=== PATIENT | female | born 1980 | race Caucasian/White ===

== ENCOUNTER 2018-07-03 02:59 | Emergency (ER) | payer SELFPAY ==
[~2018-07-03] VITALS: Ht 165.1 cm; Wt 90.7 kg
[2018-07-03 03:04] VITALS: Ht 165.1 cm; Wt 90.7 kg
[2018-07-03 05:07] VITALS: BP 108/72
== END 2018-07-03 05:07 | disposition home or self-care (01) ==
LOC: ED 02:59
DX: N39.0 Urinary tract infection, site not specified (principal)
CPT/HCPCS: J1885

== ENCOUNTER 2018-10-01 19:48 | Emergency (ER) | payer MEDICAID ==
[~2018-10-01] VITALS: Ht 167.6 cm; Wt 89.8 kg
[2018-10-01 20:04] VITALS: Ht 167.6 cm; Wt 89.8 kg
[2018-10-01 21:13] LABS: BASOPHIL % 0.8 % (0-2); PLATELET COUNT 390 x10^3mcL (130-400)
[2018-10-01 21:15] LABS: RED CELL DISTRIBUTION WIDTH 14.7 % (11.5-14.5)
[2018-10-01 21:27] LABS: CARBON DIOXIDE 27.6 mmol/L (21-32); CHLORIDE SERUM 103 mmol/L (98-107); CREATININE SERUM 0.6 mg/dL (0.6-1.0); GFR1 > 60 mL/min; GLUCOSE SERUM 100 mg/dL (74-106); POTASSIUM SERUM 3.6 mmol/L (3.5-5.1); SODIUM SERUM 136 mmol/L (136-145)
[2018-10-01 21:32] LABS: ALBUMIN 3.4 g/dL (3.4-5.0); ALKALINE PHOSPHATASE 91 U/L (46-116); ALT/SGPT 70 U/L (14-59); AST/SGOT 83 U/L (15-37); BILIRUBIN TOTAL 0.1 mg/dL (0.20-1.00); LIPASE 149 IU/L (73-393); TOTAL PROTEIN, SERUM 7.9 g/dL (6.4-8.2)
[2018-10-01 22:30] VITALS: BP 127/67
== END 2018-10-01 22:30 | disposition home or self-care (01) ==
LOC: ED 19:48
PROVIDERS: Emergency Medicine
DX: K80.50 Calculus of bile duct without cholangitis or cholecystitis without obstruction (principal)
CPT/HCPCS: J2405; J7030; Q0092

== ENCOUNTER 2018-12-26 17:57 | Inpatient (IN) | payer MEDICAID ==
[~2018-12-26] VITALS: Ht 157.5 cm; Wt 93.4 kg
[2018-12-26 18:28] VITALS: Ht 157.5 cm; Wt 93.4 kg
--- NOTE | 2018-12-26 20:15 | NUR ---
PT CAME IN COMPLAINING OF PAIN TO THE ABDOMEN THAT MOVES TO THE BACK. PT HAS HAD NO HISTORY OF SURGERIES IN THE PAST. SHE HAS HAD STONES BEFORE THOUGH. PT HAS NOT HAD MUCH TO EAT TODAY, SHE DID SAY SHE HAD SOME CHILI. PT STATES THAT PAIN IS MORE IN THE CENTER OF HER ABD. SHE HAS HAD THE PAIN FOR ABOUT ONE DAY NOW.
--- NOTE | 2018-12-26 20:30 | NUR ---
LAB AT BEDSIDE FOR BLOOD DRAW.
[2018-12-26 20:43] LABS: BASOPHIL % 0.7 % (0-2); PLATELET COUNT 370 x10^3mcL (130-400); RED CELL DISTRIBUTION WIDTH 14.2 % (11.5-14.5)
[2018-12-26 20:53] LABS: CALCIUM 8.9 mg/dL (8.5-10.1); CARBON DIOXIDE 26.3 mmol/L (21-32); CHLORIDE SERUM 103 mmol/L (98-107); CREATININE SERUM 0.7 mg/dL (0.6-1.0); GFR1 > 60 mL/min; GLUCOSE SERUM 116 mg/dL (74-106); POTASSIUM SERUM 3.6 mmol/L (3.5-5.1); SODIUM SERUM 141 mmol/L (136-145)
[2018-12-26 20:57] LABS: ALBUMIN 3.6 g/dL (3.4-5.0); ALKALINE PHOSPHATASE 110 U/L (46-116); ALT/SGPT 137 U/L (14-59); AST/SGOT 187 U/L (15-37); BILIRUBIN TOTAL 0.1 mg/dL (0.20-1.00); LIPASE 160 IU/L (73-393); TOTAL PROTEIN, SERUM 8.2 g/dL (6.4-8.2)
--- NOTE | 2018-12-26 22:34 | NUR ---
PT NO LONGER COMPLAINING OF PAIN, 0/10 AFTER FENTANYL.
--- NOTE | 2018-12-27 00:05 | NUR ---
PT MEDICATED PER MD ORDERS. SEE EMAR FOR DETAILS.
--- NOTE | 2018-12-27 00:27 | NUR ---
REPORT GIVEN TO ZEN CROUCH. ALL QUESTIONS AND CONCERNS ANSWERED. PT MADE AWARE.
--- NOTE | 2018-12-27 00:39 | NUR ---
PT OFF FLOOR TO MED SURG.
--- NOTE | 2018-12-27 00:45 | NUR ---
RECIEVED PATIENT FROM ED A/O X4. SERBIAN SPEAKING. AMBULATORY. DENIES SOB. DENIES PAIN. PATIENT AND FAMILY ORIENTED TO RROM AND USE OF CALL LIGHT. BED LOCKED AND IN LOWEST POSITION. CALL LIGHT AND BEDSIDE TABLE WITHIN REACH. RUBIA ARMAS TO ADMIT PATIENT. WILL IMPLEMENT MD ORDERS AND CONTINUE TO MONITOR PATIENT.
[2018-12-27 00:57] VITALS: BP 121/71
--- NOTE | 2018-12-27 01:07 | NUR ---
RECEVIED PT FROM ER. PT ADMIT FOR ABD PAIN, PT IS A/O X4, VERBAL RESPONSIVE, ABLE TO TELL WHAT SHE NEEDS. LUNG SOUND CLEAR BILATERAL, NO COUGH, NO SOB. PT DENY ANY CHEST PAIN, BOWEL SOUND PRESENT ALL 4 QUADRANTS, NO DISTENTION, NO TENDER. DENY ANY ABD PAIN OR N/V AT THIS TIME, PEDAL PULSE PRESENT BOTH FEET, NO EDEMA, IV AT RIGHT WRIST, NO LEAKING, NO INFITLRATION. ALL ADLS ASSIST, ALL NEED MET, CALL LIGHT IN REACH, WILL CONTINUE TO MONITOR.
[2018-12-27 01:48] LABS: CHOLESTEROL/HDL RATIO 4.5; MAGNESIUM 2.2 mg/dL (1.8-2.4); PHOSPHOROUS 3.8 mg/dL (2.5-4.9)
[2018-12-27 01:50] LABS: T3 TOTAL 1.02 ng/mL
[2018-12-27 01:53] LABS: FREE T4 0.91 ng/dL (0.76-1.46); FREE THYROXINE INDEX 2.3 ug/dL (1.4-4.5); T4(THYROXINE) 6.6 ug/dL (4.7-13.3)
[2018-12-27 06:02] VITALS: BP 103/64
[2018-12-27 06:39] LABS: BASOPHIL % 0.7 % (0-2); PLATELET COUNT 350 x10^3mcL (130-400); RED CELL DISTRIBUTION WIDTH 14.1 % (11.5-14.5)
--- NOTE | 2018-12-27 06:39 | NUR ---
UA STILL NEEDS TO BE OBTAINED, PATIENT HAS NOT VOIDED SINCE ADMISSION TO FLOOR. NO SIGNIFICANT EVENTS THIS SHIFT. WILL ENDORSE CARE TO MORNING NURSE.
[2018-12-27 06:53] LABS: CALCIUM 8.1 mg/dL (8.5-10.1); CARBON DIOXIDE 25.8 mmol/L (21-32); CHLORIDE SERUM 108 mmol/L (98-107); CREATININE SERUM 0.6 mg/dL (0.6-1.0); GFR1 > 60 mL/min; GLUCOSE SERUM 104 mg/dL (74-106); MAGNESIUM 2.2 mg/dL (1.8-2.4); PHOSPHOROUS 3.4 mg/dL (2.5-4.9); POTASSIUM SERUM 4.3 mmol/L (3.5-5.1); SODIUM SERUM 141 mmol/L (136-145)
--- NOTE | 2018-12-27 07:10 | NUR ---
RECEIVED PT FROM [facility]. PT RESTING IN BED WITH BOTH EYES CLOSED. NO S/S OF ACUTE DISTRESS. NO S/S OF PAIN. MED-SURG. IV WNL TO RW, NO REDNESS, NO SWELLING, NO INFILTRATION. PATENT. BED IN LOW POSITION. CALL LIGHT WITHIN REACH. WILL CONT. TO MONITOR.
--- NOTE | 2018-12-27 08:55 | NUR ---
PT TAKEN FOR PROCEDURE. AA/OX4. NO S/S OF ACUTE DISTRESS. DR. BALL DISCUSSES RISK/BENEFITS WITH PT AND , VERBALIZED UNDERSTANDING. NO FURTHER QUESTION. CONSENT OBTAINED. CHECKLIST COMPLETE. WINSTON WIPES COMPLETED. NO SOB ON ROOM AIR. NO CHEST PAIN. UA/UDS SAMPLE OBTAINED. WILL SEND TO LAB. IV WNL TO RW, 20 GAUGE. PT AMBULATORY WITH FULL ROM, GAIT STEADY. COMPLAINT OF MILD DIZZINESS. ACCOMPANIED BY , TAKEN BY [place]ON TO OR. VS STABLE.
[2018-12-27 09:26] LABS: microscopic required? NO
[2018-12-27 09:34] VITALS: BP 129/93
[2018-12-27 10:11] LABS: UA SPECIFIC GRAVITY 1.015 (1.005-1.035); urine erythrocyte NEGATIVE (NEGATIVE)
[2018-12-27 11:15] VITALS: BP 113/56
--- NOTE | 2018-12-27 11:15 | NUR ---
PT BACK FROM PROCEDURE. AA/OX4. NO S/S OF ACUTE DISTRESS. REPORTS PAIN TO ABD. 5/10, CONTINUOUS. WILL GIVE PAIN MED. VS STABLE. RR EVEN/UNLABORED. COMPLAINT OF MILD DRY COUGH. S/P LAB PUJA, ABD. INCISIONS X4 TO ABD, COVERED BY BANDAIDS X3 AND DRESSING X1. CDI. NO N/V. NO CHEST PAIN. IV WNL, PATENT. NO REDNESS, NO SWELLING, NO INFILTRATION. PT CALM/COOPERATIVE. AT BEDSIDE. BED IN LOW POSITION. CALL LIGHT WITHIN REACH. WILL CONT. TO MONITOR.
--- NOTE | 2018-12-27 14:00 | NUR ---
PT AMBULATORY TO RESTROOM, AA/OX4. GAIT STEADY. MILD PAIN WITH AMBULATION, REPORTS TOLERABLE AT THIS TIME. RATES 2/1O. DECLINED TO PAIN MED. VOID X1. NO SOB ON ROOM AIR. NO CHEST PAIN. PT MENSES NOTED. BED IN LOW POSITION. CALL LIGHT WITHIN REACH. DRESSINGS TO ABD. CDI. NO N/V. WILL CONTINUE TO MONITOR.
[2018-12-27 15:21] LABS: AMPHETAMINE QUAL UR NONE DETECTED (See below)
--- NOTE | 2018-12-27 16:11 | NUR ---
PT COMPLAINT OF PAIN TO ABD, DESCRIBES ACHING, CONTINUOUS, RATES 4/10, GIVEN PAIN MED, SEE MAR. NO N/V. NO S/S OF ACUTE DISTRESS. NO SOB ON ROOM AIR. NO CHEST PAIN. IV WNL, IV FLUIDS FLOWING. PT CALM/COOPERATIVE. FAMILY AT BEDSIDE. BED IN LOW POSITION. CALL LIGHT WITHIN REACH. WILL CONT. TO MONITOR.
[2018-12-27 16:43] VITALS: BP 121/66
--- NOTE | 2018-12-27 18:40 | NUR ---
PT SITTING IN BED WITH HOB ELEVATED. NO S/S OF ACUTE DISTRESS. NO COMPLAINT OF PAIN. NO SOB ON ROOM AIR. NO CHEST PAIN. NO ABD. PAIN. TOLERATED DINNER WELL. NO N/V. PASSING GAS. URINE YELLOW/CLEAR. VOID X2 AFTER PROCEDURE. PT CALM/COOPERATIVE. IV WNL, IV FLUIDS FLOWING. BED IN LOW POSITION. CALL LIGHT WITHIN REACH. WILL ENDORSE TO ONCOMING SHIFT.
--- NOTE | 2018-12-27 19:53 | NUR ---
RECEIVED PT IN BED, ALERT AND ORIENTED. ABLE TO VERBALIZE NEEDS.DENIES HEADACHE/DIZZINESS. RESP. EVEN AND UNLABORED. ON ROOM AIR, LUNGS SOUNDS CLEAR BILAT. NO ACUTE DISTRESS NOTED. AFEBRILE AND VITAL SIGNS STABLE. NO TELE, DENIES CHEST PAIN OR ANY DISCOMFORT AT THIS TIME. ABD. DRESSING WITH BANDAIDS/DRESSING, DRY AND INTACT. ABD. SOFT, NON DISTENDED, PASSING GAS, VOIDING FREELY, BUT NO BM NOTED AT THIS TIME. IVF, NS AT 40ML/HR, INTACT AND INFUSING VIA RT WRIST. SITE CLEAR. AMBULATING TO BATHROOM. CALL LIGHT WITHIN REACH. WILL CONTINUE TO MONITOR.
[2018-12-27 20:56] VITALS: BP 109/69
--- NOTE | 2018-12-28 00:43 | NUR ---
NO COMPLAINTS NOTED AT THIS TIME. EYES CLOSED. APPEARS ASLEEP. EASILY AROUSABLE. RESP. EVEN AND UNLABORED. NO ACUTE DISTRESS NOTED. IVF INTACT AND INFUSING WELL, SITE CLEAR. CALL LIGHT WITHIN REACH. WILL CONTINUE TO MONITOR.
--- NOTE | 2018-12-28 01:55 | NUR ---
AWAKE, COMPLAINING OF ABD. INCISION SITE PAIN, 4/10, MEDICATED WITH NORCO PO ORDERED. WILL CONTINUE TO MONITOR.
--- NOTE | 2018-12-28 02:58 | NUR ---
PT ASLEEP, APPEARS COMFORTABLE. SPOUSE AT THE BEDSIDE. CALL LIGHT WITHIN REACH. WILL CONTINUE TO MONITOR.
[2018-12-28 05:19] VITALS: BP 107/64
--- NOTE | 2018-12-28 06:13 | NUR ---
AFEBRILE AND VITAL SIGNS STABLE. RESP. EVEN AND UNLABORED. NO ACUTE DISTRESS NOTED. ABD. INCISION SITES WITH BANDAIDS/DRESSING, DRY AND INTACT. IVF INTACT AND INFUSING WELL, SITE CLEAR. UP TO THE BATHROOM, VOIDING FREELY. KEPT COMFORTABLE. NO COMPLAINTS NOTED AT THIS TIME. WILL CONTINUE TO MONITOR.
[2018-12-28 06:25] LABS: BASOPHIL % 0.3 % (0-2); PLATELET COUNT 367 x10^3mcL (130-400); RED CELL DISTRIBUTION WIDTH 14.2 % (11.5-14.5)
[2018-12-28 06:40] LABS: CALCIUM 8.6 mg/dL (8.5-10.1); CARBON DIOXIDE 26.2 mmol/L (21-32); CHLORIDE SERUM 105 mmol/L (98-107); CREATININE SERUM 0.6 mg/dL (0.6-1.0); GFR1 > 60 mL/min; GLUCOSE SERUM 109 mg/dL (74-106); POTASSIUM SERUM 3.8 mmol/L (3.5-5.1); SODIUM SERUM 140 mmol/L (136-145)
--- NOTE | 2018-12-28 07:15 | NUR ---
RECEIVED PATIENT FROM CAR SUPERVISOR NURSE. PATIENT IS RESTING IN BED PEACEFULLY WITH BOTH EYES CLOSED, AROUSABLE. ON ROOM AIR, BREATHING EVEN AND UNLABORED. PATIENT IS S/P LAP PUJA ON 12/27. PER CAR SUPERVISOR NURSE: PATIENT HAS PASSED GAS AND BURPED. AMBULATING WELL. PENDING BM. ABD INCISIONS NOTED X4 WITH BANDAIDS IN PLACE, CDI. IV NOTED TO RIGHT WRIST, IVF INFUSING WELL ORDERED, NO S/S REDNESS OR EDEMA AT IV SITE. CALL LIGHT WITHIN EASY REACH. WILL CONTINUE PLAN OF CARE.
--- NOTE | 2018-12-28 09:16 | NUR ---
DR BRUNER NOTIFIED VIA [facility] OF PATIENTS AM LABS: WBC 12.4. WILL FOLLOW UP.
[2018-12-28 09:54] VITALS: BP 112/66
[2018-12-28] MEDS ORDERED: NORCO1 TA2 PO (11:19)
[2018-12-28 11:48] VITALS: BP 112/66
--- NOTE | 2018-12-28 12:38 | NUR ---
PATIENT GIVEN DC INSTRUCTIONS AT THIS TIME. TRANSLATED BY LINWOOD ALBERTO. ALL QUESTIONS ANSWERED REGARDING DC. ALL NEW PRESCRIPTIONS GIVEN TO PATIENT. PHOTO OF S/P LAP PUJA TAKEN AND IN CHART. PATIENT PROVIDED WITH DR BENDER'S CONTACT INFO TO SCHEDULE FOLLOW UP APPT. PATIENT PROVIDED WITH EXTRA BANDAGES FOR INCIISON SITES. ALL PERSONAL BELONGINGS COLLECTED BY PATIENT. IV REMOVED TO RIGHT WRSIT, CATHETTER TIP INTACT, NO S/S REDNESS OR EDEMA AT SITE. PATIENT TO BE TAKEN DOWN BY LINWOOD ALBERTO.
--- NOTE | 2018-12-28 13:19 | NUR ---
PATIENT DC'D AT THIS TIME. AWAKE, ALERT AND ORIENTED. NO C/O PAIN OR DISCOMFORT AT TIME OF DC. VS STABLE. PATIENT PROVIDED WITH WORK NOTE AND TAKEN DOWN TO LOBBY BY PIPER ALBERTO CNA.
== END 2018-12-28 13:20 | disposition home or self-care (01) | DRG 263 ==
LOC: ED 17:57 → MU 23:43
PROVIDERS: Emergency Medicine; Surgery; ADMIT Family Medicine
PROC: 0FT44ZZ Resection of Gallbladder, Percutaneous Endoscopic Approach (ICD-10-PCS; principal; 2018-12-27 09:00)
DX: K80.70 Calculus of gallbladder and bile duct without cholecystitis without obstruction (principal); D68.69 Other thrombophilia; E11.9 Type 2 diabetes mellitus without complications; E78.5 Hyperlipidemia, unspecified; R74.0 Nonspecific elevation of levels of transaminase and lactic acid dehydrogenase [LDH]; E66.9 Obesity, unspecified; Z68.37 Body mass index [BMI] 37.0-37.9, adult
CPT/HCPCS: 82962; 83880; 84439; 90658; J0690; J0696; J1885; J2250; J2270; J2405; J3010; J3490; J7030; Q0092

== ENCOUNTER 2019-01-05 09:43 | Emergency (ER) | payer MEDICAID ==
[~2019-01-05] VITALS: Ht 162.6 cm; Wt 88.9 kg
[~2019-01-05 09:43] MED LIST: NORCO1 TA2 PO
[2019-01-05 09:55] VITALS: Ht 162.6 cm; Wt 88.9 kg
[2019-01-05 10:35] LABS: BASOPHIL % 0.2 % (0-2); PLATELET COUNT 371 x10^3mcL (130-400); RED CELL DISTRIBUTION WIDTH 13.8 % (11.5-14.5)
[2019-01-05 10:41] LABS: ALBUMIN 3.5 g/dL (3.4-5.0); ALKALINE PHOSPHATASE 97 U/L (46-116); ALT/SGPT 43 U/L (14-59); AMYLASE 39 U/L (25-115); AST/SGOT 19 U/L (15-37); BILIRUBIN TOTAL 0.3 mg/dL (0.20-1.00); CARBON DIOXIDE 27.7 mmol/L (21-32); CHLORIDE SERUM 102 mmol/L (98-107); CREATININE SERUM 0.6 mg/dL (0.6-1.0); GFR1 > 60 mL/min; GLUCOSE SERUM 107 mg/dL (74-106); LIPASE 86 IU/L (73-393); POTASSIUM SERUM 4.4 mmol/L (3.5-5.1); SODIUM SERUM 139 mmol/L (136-145); TOTAL PROTEIN, SERUM 8.1 g/dL (6.4-8.2)
[2019-01-05 13:05] VITALS: BP 123/77
== END 2019-01-05 13:05 | disposition home or self-care (01) ==
LOC: ED 09:43
PROVIDERS: Emergency Medicine
DX: R10.13 Epigastric pain (principal); Z90.49 Acquired absence of other specified parts of digestive tract; Z98.890 Other specified postprocedural states
CPT/HCPCS: J1885; J3010; Q9967

== ENCOUNTER 2019-11-02 02:38 | Emergency (ER) | payer MEDICAID ==
[~2019-11-02] VITALS: Ht 160 cm; Wt 93.0 kg
[2019-11-02 02:43] VITALS: Ht 160 cm; Wt 93.0 kg
[2019-11-02 04:22] VITALS: BP 132/82
== END 2019-11-02 04:22 | disposition home or self-care (01) ==
LOC: ED 02:38
DX: N39.0 Urinary tract infection, site not specified (principal); B37.3 Candidiasis of vulva and vagina

== ENCOUNTER 2020-04-28 15:06 | Emergency (ER) | payer SELFPAY ==
[~2020-04-28] VITALS: Ht 162.6 cm; Wt 93.4 kg
[2020-04-28 15:14] VITALS: BP 128/92; Ht 162.6 cm; Wt 93.4 kg
== END 2020-04-28 17:50 | disposition home or self-care (01) ==
LOC: ED 15:06
DX: U07.1 COVID-19 (principal); Z90.49 Acquired absence of other specified parts of digestive tract
CPT/HCPCS: 87804; Q0092; U0003-CS